=== PATIENT | female | born 1970 | race Caucasian/White ===

== ENCOUNTER 2016-08-04 14:55 | Emergency (ER) | payer OTHER ==
[2016-08-04 15:04] VITALS: RESP 18; TEMP 98.5
[2016-08-04] MEDS ORDERED: DIPH,PERTUSS,TET(ADACEL) VAC/PF 0.5 ML (Tdap) IM ONE (15:05)
[2016-08-04] MEDS ORDERED: Lidocaine 1% 10 MG/ML - 20 ML VIAL SUBCUT ONE (15:05)
[2016-08-04] MEDS ORDERED: Lidocaine Inj 1% 20 ML ONE (15:07)
[2016-08-04] MEDS ORDERED: BACITRACIN 0.9 GM PACKET OINT TOPICAL ONE (15:48)
--- NOTE | 2016-08-04 20:56 | PDOC ---
Hand / Wrist Injury HPI - General Chief Complaint: Laceration / Wound Stated Complaint: laceration Date Seen by Provider: 08/04/16 Time Seen by Provider: 15:00 Source: POSITIVE: Patient Exam Limitations: POSITIVE: No limitations Nurse's Notes Reviewed & Considered: Yes - History of Present Illness Initial Comments: The patient is a 45-year-old female who presents to the emergency department with a laceration to her left little finger. She states that she was using a knife to cut a sandwich at work when she slipped in the tip of her cut her left little finger. She has good movement of the finger and normal sensation to the tip of her finger. She denies any other associated injuries or complaints. She does report a history of hepatitis C. She is unsure when she had her last tetanus shot however thinks it may have been when she was 19 years old. Have you received a tetanus shot in the past 10 years?: No - Patient Home Medications Home Medications: Home Medications NK [No Home Medications Reported] 08/04/16 - Patient Allergies Allergies/Adverse Reactions: Allergies Allergy/AdvReac Type Severity Reaction Status Date / Time No Known Drug Allergies Allergy NOT Verified 08/04/16 14:57 APPLICABLE Past Medical History - heen HEENT History: Denies History Cardiovascular History: Denies History Respiratory History: Asthma Gastrointestinal History: Denies History Genitourinary History: Denies History Endocrine History: Gestational Diabetes Musculoskeletal History: Denies History Prosthesis or Implant: No Neurological History: Denies History Blood Disorders: Other (please comment) Additional Blood Disorders History: Hep C Psychiatric History: Depression, Anxiety Disorders, Depression History of Sexually Transmitted Diseases: No LMP: 07/15/16 Cancer History: Denies History In Past Year Been Physically Harmed or Verbally Threatened: No History of MDRO: No History of Other Communicable Diseases: No Tobacco Use: Current Every Day Smoker Alcohol Use: None Substance Use Type: Cocaine, Methamphetamines Previous Surgical History: Yes Type / Date of Surgery: 1991 face reconstruction Anesthesia Reactions: No Malignant Hyperthermia: No Significant Family History: Diabetes, Hypertension Past Medical History Reviewed: Reviewed - No Changes ROS - Limitations ROS Limitations: No Limitations (Review of systems otherwise noncontributory) Hand / Wrist Injury Exam - General Appearance General Appearance: POSITIVE: Alert, Cooperative, No Acute Distress - Extremities Upper Extremity: POSITIVE: Other (examination of the left hand does reveal a 1 cm laceration to the palmar surface of the proximal left little finger, she has full flexion and extension of the finger with normal sensation and cap refill to the fingertip, the wound is clean with minimal bleeding) Neurovascular / Tendon: POSITIVE: Sensation Normal, Motor Normal, No Vascular Compromise Procedure - Laceration/Wound Repair Site of Lac/Wound:: Left little finger Wound Length (cm): 1 Wound's Depth, Shape: Into subcutaneous tissue, Linear Distal CMS: Yes Local Anesthesia Used - Indicate Amt Used in Comment: Lidocaine 1%: Yes (local) Wound Explored: Clean Wound Repaired With: Sutures single layer Suture Size/Type: 5:0, Ethilon Number of Sutures: 2 Layer Closure?: No Sterile Dressing Applied?: Yes Splint Applied?: No Hand / Wrist Injury Progress - Patient's Progress MDM / ED Course: The laceration was repaired as above and wound care instructions were discussed. The patient is advised return to the emergency room if she develops any sign of infection, any worsening or change in symptoms. She is advised to have sutures removed in 10 days. - Consult Counseled: POSITIVE: Patient, RE: DX, RE: Need for F/U Patient Care Time - Estimated PCT Patient Care Time (In Minutes): 20 Vital Signs - VS Reviewed Vital Signs Reviewed: Yes Discharge Clinical Impression: Laceration - injury Discharge Disposition: Discharged to Home Condition: Stable Patient Instructions Given at Discharge: Laceration (ED) Additional Instructions: Keep the wound covered and dry for the first 24 hours. After that you can put a small amount of antibiotic ointment and a Band-Aid on it during the day and leave it open at night. Return to the emergency room if increased drainage from the wound, increased pain, fever or other sign of infection. Sutures should be removed in approximately 10 days which can be done here through the emergency department. Follow Up With: NONE,NONE [Primary Care Provider] -
== END 2016-08-04 15:52 | disposition home or self-care (01) ==
LOC: ER 14:55
DX: S61.211A Laceration without foreign body of left index finger without damage to nail, initial encounter (principal); W26.0XXA Contact with knife, initial encounter; Y99.0 Civilian activity done for income or pay
CPT/HCPCS: 12001; 90471; 99282; J2001